=== PATIENT | male | born 1955 | race Caucasian/White ===

== ENCOUNTER 2018-11-30 21:55 | Observation (INO) | payer OTHER ==
[~2018-11-30] VITALS: Ht 177.8 cm; Wt 96.6 kg
--- OUTSIDE RECORDS SUMMARY | 2018-11-30 21:58 | XMS REPORT | Clinical Summary ---
Author Author [facility]ub [facility] Organization [facility] Address Unknown Phone Unavailable Care Team Providers Care Senior Mortgage Loan Processor Name Role Phone Asked, No Pcp PCP Unavailable Allergies No Known Allergies Medications End Date Status Medication Sig Dispensed Refills Start Date Active nabumetone (RELAFEN) 500 Take 500 mg 0 MG tablet by mouth 2 (two) times a day. Active pantoprazole (PROTONIX) Take 40 mg by 0 40 MG EC tablet mouth daily. Active atorvastatin (LIPITOR) 40 Take 40 mg by 0 MG tablet mouth 3 (three) times a week. Active FOLIC ACID ORAL Take 1 tablet 0 by mouth daily. Active Problems Problem Noted Date GERD with esophagitis 07/18/2017 Last Assessment & Plan: The patient has symptoms a burning pain in his throat and in his sinuses. These are somewhat atypical. The patient will be sent for an esophagram, high resolution esophageal manometry and a 48 hour problem pH study. The patient will also need a repeat EGD. I will also obtain the patient's last EGD report from Dr. Talbot. The patient will return to clinic after the above tests are complete to discuss the results. Family History Medical History Relation Name Comments Prostate cancer Brother No Known Problems Brother No Known Problems Brother No Known Problems Daughter No Known Problems Daughter Cancer Father No Known Problems Maternal Grandfather No Known Problems Maternal Grandmother Alzheimer's disease Mother Dementia Mother Heart disease Mother No Known Problems Paternal Grandfather No Known Problems Paternal Grandmother No Known Problems Sister No Known Problems Son Relation Name Status Comments Brother Alive Brother Alive Brother Alive Daughter Alive Daughter Alive Father Maternal Grandfather Maternal Grandmother Mother Paternal Grandfather Paternal Grandmother Sister Alive Son Alive Social History Date Tobacco Use Types Packs/Day Years Used Quit: 1980 Former Smoker Cigarettes 2 10 Smokeless Tobacco: Never Used Alcohol Use Drinks/Week oz/Week Comments Yes Sex Assigned at Date Recorded Not on file Industry Job Start Date Occupation Not on file Not on file Not on file Travel End Travel History Travel Start No recent travel history available. Last Filed Vital Signs Not on file Plan of Treatment Health Maintenance Due Date Last Done Comments COLONOSCOPY SCREENING 2003 SHINGLES VACCINES (#1) 2003 65+ PNEUMOCOCCAL VACCINE 2018 (1 of 2 - PCV13) INFLUENZA VACCINE 12/27/2018 Results Not on fileafter 11/29/2017 Insurance Type Payer Benefit Subscriber ID Effective Phone Address Plan / Dates Group HMO/PPO [facility] xxxxxxxxx 2017-P THCARE resent CHOICE/CHO ICE + Advance Directives Patient has advance care planning documents on file. For more information, sonya carrillo contact: Jakub Lomeli [address] [place] [address]
--- NOTE | 2018-11-30 22:13 | NUR ---
DR. CHAPMAN AT BEDSIDE FOR PT EVAL AT THIS TIME.
[2018-11-30] MEDS ORDERED: ASPIRIN 81 MG CHEW TAB PO ONE (22:15)
[2018-11-30] MEDS ORDERED: NITROGLYCERIN 2% OINT 1 GM PKT TOP ONE (22:15)
--- NOTE | 2018-11-30 22:22 | NUR ---
RADIOLOGY AT BEDSIDE FOR CXR AT THIS TIME.
[2018-11-30 22:46] LABS: BASOPHILS % 0.3 % (0.0-1.0); EOSINOPHILS # (AUTO) 0.3 (0.0-0.4); EOSINOPHILS % 4.3 % (0.0-6.0); HEMATOCRIT 45.6 % (38.2-49.6); HEMOGLOBIN 15.1 g/dL (14.0-18.0); LYMPHOCYTES # (AUTO) 1.6 (1.0-3.2); LYMPHOCYTES % 23.4 % (18.0-39.1); MEAN CORPUSCULAR HEMOGLOBIN 28.4 pg (28-32); MEAN CORPUSCULAR HGB CONC 33.1 g/dL (31-35); MEAN CORPUSCULAR VOLUME 85.7 fL (81-99); MONOCYTES # (AUTO) 0.7 (0.2-0.8); MONOCYTES % 10.4 % (4.4-11.3); NEUTROPHILS # (AUTO) 4.1 (2.1-6.9); NEUTROPHILS % 61.3 % (38.7-80.0); PLATELET COUNT 199 x10e3/uL (140-360); RED BLOOD COUNT 5.32 x10e6/uL (4.3-5.7)
--- NOTE | 2018-11-30 22:47 | Diagnostic Imaging Report ---
EXAMINATION: CHEST SINGLE (PORTABLE) COMPARISON: None INDICATION: tightness ^chest pain ^20181130 ^2220 ^Y DISCUSSION: Frontal view of the chest obtained at 2225 hours. HEART AND MEDIASTINUM: The cardiomediastinal silhouette is unremarkable. LINES: None. LUNGS: The lungs are well inflated and clear. No pneumonia or pulmonary edema. PLEURA: No pleural effusion or pneumothorax. Central eventration of the right hemidiaphragm. BONES AND SOFT TISSUES: No focal osseous lesion. The soft tissues are normal. IMPRESSION: No acute cardiopulmonary disease. Signed by: Dr. Franca Chaney MD on 11/30/2018 10:44 PM
[2018-11-30 23:04] LABS: ALANINE AMINOTRANSFERASE 60 IU/L (0-55); ALBUMIN 4.2 g/dL (3.5-5.0); ALBUMIN/GLOBULIN RATIO 1.7 (0.8-2.0); ALKALINE PHOSPHATASE 117 IU/L (40-150); BLOOD UREA NITROGEN 24 mg/dL (7-26); BUN/CREATININE RATIO 18 (6-25); CALCIUM 9.5 mg/dL (8.4-10.2); CARBON DIOXIDE 25 mmol/L (22-29); CHLORIDE 104 mmol/L (98-107); CREATINE KINASE 131 IU/L (30-200); CREATININE, SERUM 1.31 mg/dL (0.72-1.25); EST GLOMERULAR FILTRATION RATE 55 ML/MIN (60-); GLUCOSE 87 mg/dL (74-118); SODIUM 139 mmol/L (136-145)
--- NOTE | 2018-11-30 23:15 | NUR ---
REPORT GIVEN TO DESTINY GUERRA.
--- NOTE | 2018-11-30 23:16 | NUR ---
RECEIVED REPORT FROM DESTINY SERRA.
[2018-12-01] VITALS (9 sets, daily range): BP systolic 99–111; BP diastolic 60–72
--- OUTSIDE RECORDS SUMMARY | 2018-12-01 00:41 | XMS REPORT | Clinical Summary ---
Author Author [facility]ub [facility] Organization [facility] Address Unknown Phone Unavailable Care Team Providers Care Bricklayer Helper Name Role Phone Asked, No Pcp PCP [...] INFLUENZA VACCINE 12/27/2018 Results Not on fileafter 11/30/2017 Insurance Type Payer Benefit Subscriber ID Effective Phone Address Plan / Dates Group HMO/PPO [facility] xxxxxxxxx 2017-P THCARE resent CHOICE/CHO ICE + Guarantor Name Account Relation to Date of Phone Billing Address Type Patient Jonnathan Bedoya Personal/F Self 1955 [phone] [id number] [facility] [address] [place] [address] Advance Directives Patient has advance care planning documents on file. For more information, sonya carrillo contact: Jakub Lomeli [address] [place] [address]
--- OUTSIDE RECORDS SUMMARY | 2018-12-01 00:41 | XMS REPORT ---
Author Author [facility] Address Unknown Phone Unavailable Care Team Providers Care Piping Engineer Name Role Phone Poncho CHAPMAN Unavailable Unavailable Problems This patient has no known problems. Allergies, Adverse Reactions, Alerts This patient has no known allergies or adverse reactions. Medications This patient has no known medications. Results Test Description Test Time Test Comments Text Results Atomic Results Result Comments CHEST SINGLE (PORTABLE) 2018-11-30 22:43:00 [place] [address] Patient Name: ANNIE ROBERTS MR #: [id number] : 1955 Age/Sex: 63/M Req #: [id number] Adm Physician: Ordered by: NETO CHAPMAN MD Report #: [id number] Location: ER Room/Bed: Procedure: [id number] DX/CHEST SINGLE (PORTABLE) Exam Date: 11/30/18 Exam Time: 2219 REPORT STATUS: Signed EXAMINATION: CHEST SINGLE (PORTABLE) COMPARISON: None INDICATION: tightness chest pain 20181130 Y DISCUSSION: Frontal view of the chest obtained at 2225 hours. HEART AND MEDIASTINUM: The cardiomediastinal silhouette is unremarkable. LINES: None. LUNGS: The lungs are well inflated and clear. No pneumonia or pulmonary edema. PLEURA: No pleural effusion or pneumothorax. Central eventration of the right hemidiaphragm. BONES AND SOFT TISSUES: No focal osseous lesion. The soft tissues are normal. IMPRESSION: No acute cardiopulmonary disease. Signed by: Dr. Riky Chaney MD on 11/30/2018 10:44 PM Dictated By: RIKY CHANEY MD 43 Transcribed By: MAN on 11/30/182243 COPY TO: NETO CHAPMAN MD
[2018-12-01] MEDS ORDERED: SODIUM CHLORIDE FLUSH 10 ML SYR INJ PRN (00:45)
[2018-12-01] MEDS ORDERED: ONDANSETRON HCL INJ 2MG/ML 2ML 2 MG/ML VIAL IV PRN (00:45)
[2018-12-01] MEDS: FAMOTIDINE 20 MG/2 ML VIAL IV SCH ×3 (01:50→20:09)
--- NOTE | 2018-12-01 01:55 | NUR ---
RECEIVED PT BY WHEELCHAIR TO ROOM 112, PT IS AAOX3, RR EVEN AND NON-LABORED, ON ROOM AIR. NO S/SX OF DISTRESS NOTED. PT AMBULATORY TO HOSPITAL BED. ORIENTED PT TO HOSPITAL ROOM, CALL LIGHT, PHONE, BED CONTROLS AND LIGHTS. LEFT PT LAYING SEMI FOWLERS IN BED, BED IN LOW LOCKED POSITION, SIDE RAILS UPX2, CALL LIGHT AND PHONE WITHIN REACH.
[2018-12-01] MEDS ORDERED: MULTIVITAMINS1 EAC7 PO (02:26)
[2018-12-01] MEDS ORDERED: ATORVASTATIN CA20 MG PO (02:26)
[2018-12-01] MEDS ORDERED: PANTOPRAZOLE SO40 MG PO (02:26)
[2018-12-01] MEDS ORDERED: NABUMETONE500 MG PO (02:26)
[2018-12-01] MEDS ORDERED: NITROGLYCERIN 2% OINT 1 GM PKT TOP SCH (06:00)
--- NOTE | 2018-12-01 07:25 | NUR ---
PT UP IN BED ,DENIES CHEST PAIN.
[2018-12-01 07:42] LABS: CREATINE KINASE 109 IU/L (30-200)
[2018-12-01] MEDS: ASPIRIN 81 MG ENTERIC COATED PO SCH (09:00)
[2018-12-01] MEDS ORDERED: ZOLPIDEM TARTRATE 5 MG TAB PO PRN (14:30)
[2018-12-01] MEDS ORDERED: MAGNESIUM/ALUMINUM/SIMETHICONE 30 ML UDC PO PRN (14:30)
[2018-12-01] MEDS ORDERED: MAGNESIUM HYDROXIDE 30 ML UDC PO PRN (14:30)
[2018-12-01] MEDS ORDERED: ACETAMINOPHEN 325 MG TAB PO PRN (14:30)
--- NOTE | 2018-12-01 15:00 | NUR ---
DR MOULTON HERE
--- NOTE | 2018-12-01 15:47 | History and Physical ---
CHIEF COMPLAINT: Mr. Bedoya is a pleasant 63-year-old man, who tells me that he retired about three months ago. He presented to the emergency room with a complaint of substernal chest discomfort. HISTORY OF PRESENT ILLNESS: The patient tells me that yesterday after lunch and then again today after lunch that he had epigastric discomfort that radiated to his chest and neck. He is not sure where this comes from and never had the identical discomfort before. He has had previous discomforts that were evidently related to pleurisy and pericarditis in the past. PAST MEDICAL HISTORY: Relatively insignificant. He knows that he has a hiatal hernia. He has had previous surgeries for left shoulder and for carpal tunnel release. He reports he takes pantoprazole and Nexium at home, although these symptoms have improved since he retired. PERSONAL/SOCIAL HISTORY: He has not smoked in many years. Rarely has any alcohol. FAMILY HISTORY: Mother had coronary artery disease and brother had sleep apnea. PHYSICAL EXAMINATION: GENERAL: At this time shows a pleasant man about 5 feet 10 inches tall, weighing about 213 pounds. VITAL SIGNS: Blood pressure 107/68. HEAD, EYES, EARS, NOSE, and THROAT: Unremarkable. NECK: No jugular venous distention. THORAX: Heart sounds S1, S2 equal. No murmurs. Lungs are clear. ABDOMEN: Protuberant. Normal bowel sounds. EXTREMITIES: No cyanosis, clubbing, or edema. LABORATORY DATA: EKG is normal sinus rhythm. Troponins are normal x3. His AST and ALT are both slightly elevated, which he admits that his family doctor found the same thing earlier this year. Chest x-ray is unremarkable. ASSESSMENT: 1. Epigastric and chest discomfort postprandial, may have been due to liver and gallbladder abnormalities. 2. Mildly elevated liver functions. PLAN: We will check ultrasound of the abdomen with attention to liver and gallbladder, and we will monitor his general status. We will provide p.r.n. medications. MD SHIELA Rocha/GEOVANNI /[id number] cc: Colton Downs
--- NOTE | 2018-12-01 17:16 | NUR ---
DENIES CHHEST PAIN,AWAITING US ABDOMEN
--- NOTE | 2018-12-01 19:00 | NUR ---
Received report from day nurse. patient is resting comfortably in bed. bed is in lowest position and call londono is within reach. will continue to monitor patient's care.
--- NOTE | 2018-12-01 20:10 | Diagnostic Imaging Report ---
HISTORY: None TECHNIQUE: Selected static images from complete abdominal ultrasound provided for INTERPRETATION: COMPARISON: None. FINDINGS: Pancreas: Visualized portions are increased in echotexture without mass or ductal dilatation. Liver: Measures 13.4 cm in sagittal plane. The echotexture is normal. No mass in the visualized portions. Portal Vein: Measures 1.0 cm. Hepatopetal flow on spectral Doppler interrogation. Biliary Tree: Normal Gallbladder: No evidence of gallstone or gallbladder wall thickening. CBD: 0.2 cm. Right Kidney: Length is 10.4 cm. Echotexture is normal. A cyst in the interpolar region measures 11 x 13 x 16 mm. Left Kidney: Length is 12.1 cm. Echotexture is normal. Partially septated cyst in the interpolar region measures 6.4 x 8.1 x 6.6 cm. Spleen: 12.5 cm in length. No evidence for mass. Aorta: Poorly visualized due to bowel gas. IVC: Patent No free fluid IMPRESSION: Normal hepatic echotexture and size. No hepatic mass. Normal gallbladder and biliary tree. Bilateral renal cysts as described above. Signed by: Dr. Franca Chaney MD on 12/01/2018 8:07 PM
[2018-12-01 22:15] LABS: CREATINE KINASE 113 IU/L (30-200)
[2018-12-02 04:00] VITALS: BP 110/69
[2018-12-02 05:22] LABS: CHOL/HDL RATIO 3.7 (3.9-4.7)
--- NOTE | 2018-12-02 06:57 | NUR ---
report given to day nurse. patient is resting comfortably in bed. bed is in lowest position and call londono is within reach.
--- NOTE | 2018-12-02 07:30 | NUR ---
PT UP IN BED ,DENIES CHEST PAIN.TEL IN PLACE NSR
[2018-12-02 08:00] VITALS: BP 113/79
[2018-12-02] MEDS: FAMOTIDINE 20 MG/2 ML VIAL IV SCH (08:21)
[2018-12-02] MEDS: ASPIRIN 81 MG ENTERIC COATED PO SCH (08:21)
[2018-12-02 09:16] VITALS: BP 113/79
[2018-12-02 13:42] VITALS: BP 112/70
--- NOTE | 2018-12-02 14:01 | Discharge Summary ---
Mr. Bedoya is a pleasant 63-year-old man, known to us from previous evaluations. He was admitted in the stain applicator hours of the 6th with epigastric and chest discomfort. HOSPITAL COURSE: The patient was admitted with normal EKGs and three sets of normal cardiac enzymes. Echocardiogram revealed mild LVH and normal systolic function. As the patient has slightly elevated liver functions, he had ultrasound of the gallbladder, which showed normal gallbladder and normal liver texture. He remains comfortable and with known hiatal hernia, he is discharged home to continue his previous medications and to add antacids as necessary and proceed to outpatient gastroenterology consultation. DISCHARGE DIAGNOSES: 1. Epigastric and chest discomfort. 2. Mildly elevated liver functions. 3. Known hiatal hernia. MD SHIELA Rocha/GEOVANNI /[id number] cc: Colton Downs
--- NOTE | 2018-12-02 14:37 | NUR ---
PT DISCHARGED HOME IV DCD WITHOUT REDNESS OR SWELLING,NO C/O CHEST PAIN.TRANSPORTED TO [facility] VIA W/C
== END 2018-12-02 14:00 | disposition home or self-care (01) ==
LOC: ER 21:55 → ERHOLD 12-01 00:38 → MED/SURG 12-01 01:51
PROVIDERS: ADMIT Internal Medicine Cardiovascular Disease; ATTEND Internal Medicine Cardiovascular Disease
DX: R07.89 Other chest pain (principal); R10.13 Epigastric pain; R79.89 Other specified abnormal findings of blood chemistry; E78.5 Hyperlipidemia, unspecified; K21.9 Gastro-esophageal reflux disease without esophagitis; M19.90 Unspecified osteoarthritis, unspecified site; Z82.49 Family history of ischemic heart disease and other diseases of the circulatory system; K44.9 Diaphragmatic hernia without obstruction or gangrene; Z87.891 Personal history of nicotine dependence
CPT/HCPCS: 36415 ×3; 71045; 76700; 80053; 80061; 82550 ×2; 82553 ×2; 84484 ×2; 85025; 93005; 93306; 99284; G0378 ×2

== ENCOUNTER → 2020-01-21 | Day surgery (SDC) | payer OTHER ==
[2020-01-16 09:45] LABS: BASOPHILS % 0.3 % (0.0-1.0); EOSINOPHILS # (AUTO) 0.2 (0.0-0.4); EOSINOPHILS % 2.9 % (0.0-6.0); HEMATOCRIT 47.7 % (38.2-49.6); HEMOGLOBIN 15.6 g/dL (14.0-18.0); LYMPHOCYTES # (AUTO) 1.5 (1.0-3.2); LYMPHOCYTES % 22.9 % (18.0-39.1); MEAN CORPUSCULAR HEMOGLOBIN 28.3 pg (28-32); MEAN CORPUSCULAR HGB CONC 32.7 g/dL (31-35); MEAN CORPUSCULAR VOLUME 86.6 fL (81-99); MONOCYTES # (AUTO) 0.5 (0.2-0.8); MONOCYTES % 7.9 % (4.4-11.3); NEUTROPHILS # (AUTO) 4.3 (2.1-6.9); NEUTROPHILS % 65.5 % (38.7-80.0); PLATELET COUNT 219 x10e3/uL (140-360); RED BLOOD COUNT 5.51 x10e6/uL (4.3-5.7); RED CELL DISTRIBUTION WIDTH 12.6 % (11.7-14.4)
[~2020-01-21] MED LIST: ATORVASTATIN CA20 MG PO; BUPIVACAINE HCL 0.5% INJ 30 ML VIAL INJ ONE; COQ-10100 MG PO; FENTANYL CITRATE/PF 100MCG/2 ML INJ ONE; IOPAMIDOL 300MG/ML 50ML INFUS..BTL IV ONE; LIDOCAINE HCL 1% LOCAL INJ 20 ML VIAL ONE; LIDOCAINE HCL 2% LOCAL INJ 5 ML SDV VIAL INJ ONE; MIDAZOLAM HCL 2 MG/2 ML VIAL ONE; MULTI-VITAMIN1 EACH PO; MULTIVITAMINS1 EAC7 PO; NABUMETONE500 MG PO; PANTOPRAZOLE SO40 MG PO; PROPOFOL IV EMULSION 10 MG/ML 20 ML VIAL ONE; TRIAMCINOLONE ACET 40 MG/ML VIAL ONE; VITAMIN D325 MCG PO
[2020-01-21 07:55] VITALS: BP 118/66
--- NOTE | 2020-01-21 08:28 | Operative Report ---
DATE OF PROCEDURE: 01/21/2020 SURGEON: Josué Valladares MD PREOPERATIVE DIAGNOSIS: Osteoarthritis, right hip. POSTOPERATIVE DIAGNOSIS: Osteoarthritis, right hip. PROCEDURE: Right hip fluoroscopic-guided corticosteroid injection. INDICATIONS: The patient is a 65-year-old gentleman, who has signs and symptoms consistent with osteoarthritis of his right hip. His x-rays do not look too bad. He also has some back issues. We plan on a fluoroscopic-guided hip injection for diagnostic and therapeutic purposes. The risks and benefits were discussed. He stated he understood and wished to proceed. PROCEDURE IN DETAIL: The patient was brought to the operating room and placed under MAC anesthetic. A C-arm image intensifier was used to assist in placing a spinal needle into the right hip joint. A small amount of synovial fluid was aspirated. A small amount of dye was injected to confirm intra-articular position as well. A mixture of 40 mg of Depo-Medrol and 9 mL of 0.5% Marcaine were injected into the hip joint. It was clear that the injection was into the hip joint. The needle was retrieved and a Band-Aid was applied. He was transported to the recovery room in stable condition. Josué Valladares MD DR/GEOVANNI /[id number]
== END | disposition home or self-care (01) ==
LOC: OR 05:27
PROVIDERS: ATTEND Specialist
DX: M16.11 Unilateral primary osteoarthritis, right hip (principal); E78.5 Hyperlipidemia, unspecified; Z01.810 Encounter for preprocedural cardiovascular examination; Z01.812 Encounter for preprocedural laboratory examination; Z11.59 Encounter for screening for other viral diseases; Z87.891 Personal history of nicotine dependence
CPT/HCPCS: 20610; 77002; 36415; 85025; 93005; J2001; J2250; J2704; J3010; J3301; Q9967; U0002; 76000

== ENCOUNTER 2020-02-24 05:10 | Observation (INO) | payer OTHER ==
[~2020-02-24] VITALS: Ht 177.8 cm; Wt 96.6 kg
[~2020-02-24 05:10] MED LIST changes: -BUPIVACAINE HCL 0.5% INJ 30 ML VIAL INJ ONE; -FENTANYL CITRATE/PF 100MCG/2 ML INJ ONE; -IOPAMIDOL 300MG/ML 50ML INFUS..BTL IV ONE; -LIDOCAINE HCL 1% LOCAL INJ 20 ML VIAL ONE; -LIDOCAINE HCL 2% LOCAL INJ 5 ML SDV VIAL INJ ONE; -MIDAZOLAM HCL 2 MG/2 ML VIAL ONE; -PROPOFOL IV EMULSION 10 MG/ML 20 ML VIAL ONE; -TRIAMCINOLONE ACET 40 MG/ML VIAL ONE
[2020-02-24] MEDS ORDERED: DEXAMETHASONE SOD PHOS INJ 4 MG/ML VIAL ONE (06:03)
[2020-02-24] MEDS ORDERED: CELECOXIB 200 MG CAP ONE (06:03)
[2020-02-24] MEDS ORDERED: GABAPENTIN 300 MG CAP ONE (06:04)
[2020-02-24] MEDS ORDERED: CEFAZOLIN SOD 1 GM/NS 50ML 100 ML IV ONE (06:04)
[2020-02-24] MEDS ORDERED: VANCOMYCIN HCL 1,000 MG ONE (06:39)
[2020-02-24] MEDS ORDERED: TRANEXAMIC ACID 1,000 MG/10 ML ML ONE (06:39)
[2020-02-24] MEDS ORDERED: SODIUM CHLORIDE 0.9% 500ML 500 ML ONE (06:40)
[2020-02-24] MEDS ORDERED: BUPIVACAINE 7.5MG/ML /DEXTROSE 82.5MG/ML 2 ML AMP INJ ONE (07:09)
[2020-02-24] MEDS ORDERED: ROPIVACAINE 246.25 MG, EPINEPHRINE HCL 1:1000 1ML 0.5 MG, CLONIDINE HCL 0.08 MG, KETORO... INJ ONE ×5 (08:00)
[2020-02-24] MEDS ORDERED: DOCUSATE SODIUM 100 MG CAP PO PRN (08:30)
[2020-02-24] MEDS ORDERED: ZOLPIDEM TARTRATE 5 MG TAB PO PRN (08:30)
[2020-02-24] MEDS ORDERED: ONDANSETRON HCL INJ 2MG/ML 2ML 2 MG/ML VIAL IV PRN (08:30)
[2020-02-24] MEDS ORDERED: ACETAMINOPHEN 650 MG SUPP PR PRN (08:30)
[2020-02-24] MEDS ORDERED: HYDROCODONE/APAP 5MG-325MG TAB PO PRN (08:30)
[2020-02-24] MEDS ORDERED: DIPHENHYDRAMINE HCL INJ 50 MG/ML VIAL IV PRN (08:30)
[2020-02-24] MEDS ORDERED: KETOROLAC TROMETHAMINE 30 MG/ML VIAL IV PRN (08:30)
[2020-02-24 11:30] VITALS: BP 116/73
[2020-02-24] MEDS: SODIUM CHLORIDE 0.9% 1000ML 1,000 ML IV SCH ×2 (11:30→21:30)
[2020-02-24] MEDS ORDERED: PROPOFOL IV EMULSION 10 MG/ML 20 ML VIAL ONE (12:55)
[2020-02-24] MEDS ORDERED: GLYCOPYRROLATE INJ 0.2 MG/ML VIAL ONE (12:55)
[2020-02-24] MEDS ORDERED: LIDOCAINE HCL 2% LOCAL INJ 5 ML SDV VIAL INJ ONE (12:55)
[2020-02-24] MEDS ORDERED: MIDAZOLAM HCL 2 MG/2 ML VIAL ONE (13:03)
[2020-02-24] MEDS ORDERED: FENTANYL CITRATE/PF 100MCG/2 ML INJ ONE (13:03)
[2020-02-24] MEDS: CEFAZOLIN SOD 1 GM/NS 50ML 50 ML IV SCH ×2 (14:40→23:00)
[2020-02-24 14:58] VITALS: BP 121/78
[2020-02-24] MEDS: ASPIRIN 325 MG TAB PO SCH (17:09)
[2020-02-24] MEDS: CELECOXIB 200 MG CAP PO SCH (17:09)
[2020-02-24 20:00] VITALS: BP 117/75
[2020-02-24 20:35] VITALS: BP 117/75
[2020-02-24] MEDS ORDERED: ATORVASTATIN 40 MG TAB PO SCH (21:00)
[2020-02-25] VITALS: BP 118/71
[2020-02-25] MEDS: HYDROCODONE/APAP 7.5MG-325MG 1 EA TAB PO PRN ×2 (00:04→06:38)
[2020-02-25 04:00] VITALS: BP 117/69
[2020-02-25 06:03] LABS: BASOPHILS % 0.2 % (0.0-1.0); EOSINOPHILS % 0.2 % (0.0-6.0); HEMATOCRIT 39.4 % (38.2-49.6); HEMOGLOBIN 13.2 g/dL (14.0-18.0); LYMPHOCYTES # (AUTO) 1.1 (1.0-3.2); LYMPHOCYTES % 8.6 % (18.0-39.1); MEAN CORPUSCULAR HGB CONC 33.5 g/dL (31-35); MEAN CORPUSCULAR VOLUME 89.5 fL (81-99); MONOCYTES # (AUTO) 1.1 (0.2-0.8); MONOCYTES % 8.9 % (4.4-11.3); NEUTROPHILS # (AUTO) 10.5 (2.1-6.9); NEUTROPHILS % 81.5 % (38.7-80.0); PLATELET COUNT 168 x10e3/uL (140-360); RED CELL DISTRIBUTION WIDTH 12.8 % (11.7-14.4)
[2020-02-25 06:39] LABS: ALANINE AMINOTRANSFERASE 20 IU/L (0-55); ALBUMIN 3.9 g/dL (3.5-5.0); ALBUMIN/GLOBULIN RATIO 1.9 (0.8-2.0); ALKALINE PHOSPHATASE 92 IU/L (40-150); BLOOD UREA NITROGEN 16 mg/dL (7-26); BUN/CREATININE RATIO 15 (6-25); CALCIUM 8.9 mg/dL (8.4-10.2); CARBON DIOXIDE 25 mmol/L (22-29); CHLORIDE 105 mmol/L (98-107); EST GLOMERULAR FILTRATION RATE > 60 ML/MIN (60-); GLUCOSE 114 mg/dL (74-118); SODIUM 138 mmol/L (136-145)
[2020-02-25] MEDS: CEFAZOLIN SOD 1 GM/NS 50ML 50 ML IV SCH (06:40)
[2020-02-25] MEDS: SODIUM CHLORIDE 0.9% 1000ML 1,000 ML IV SCH (07:30)
[2020-02-25] MEDS ORDERED: ACETAMINOPHEN 1000 MG/100 ML IV PRN (08:30)
[2020-02-25 08:50] VITALS: BP 134/72
[2020-02-25] MEDS ORDERED: PANTOPRAZOLE SOD 40 MG TABEC PO SCH (09:00)
[2020-02-25] MEDS ORDERED: MULTIVITAMINS/MINERALS TAB PO SCH (09:00)
[2020-02-25] MEDS: ASPIRIN 325 MG TAB PO SCH (09:13)
[2020-02-25] MEDS: CELECOXIB 200 MG CAP PO SCH (09:13)
[2020-02-25 09:32] VITALS: BP 134/72
[2020-02-25 12:14] VITALS: BP 115/66
== END 2020-02-25 14:29 | disposition home health service (06) ==
LOC: OR 05:10 → PACU V 08:17 → MED/SURG 11:00
PROVIDERS: ADMIT Specialist; ATTEND Specialist
DX: M16.11 Unilateral primary osteoarthritis, right hip (principal); E78.5 Hyperlipidemia, unspecified; K21.9 Gastro-esophageal reflux disease without esophagitis; E66.01 Morbid (severe) obesity due to excess calories; Z68.32 Body mass index [BMI] 32.0-32.9, adult; Z11.59 Encounter for screening for other viral diseases; Z01.818 Encounter for other preprocedural examination
CPT/HCPCS: 27130; 36415; 72170; 80053; 85025; 86850; 86900; 86920; 97110 ×2; 97116 ×2; 97161; C1713 ×2; C1734; C1776 ×2; G0378 ×2; J0171; J0690 ×2; J1100; J1885; J2001; J2250; J2405; J2704; J2795; J3010; J3370; J7040; S0164; U0002

== ENCOUNTER 2022-09-08 10:08 | Emergency (ER) | payer OTHER, MEDICARE ==
[~2022-09-08] VITALS: Ht 177.8 cm; Wt 96.6 kg
[2022-09-08] MEDS ORDERED: NAPROSYN500 MG PO (11:42)
[2022-09-08 11:57] VITALS: BP 143/91
== END 2022-09-08 12:05 | disposition home or self-care (01) ==
LOC: ER 10:14
DX: M25.562 Pain in left knee (principal); M25.462 Effusion, left knee; E78.5 Hyperlipidemia, unspecified; K21.9 Gastro-esophageal reflux disease without esophagitis
CPT/HCPCS: 99284

== ENCOUNTER 2023-07-03 05:54 | Emergency (ER) | payer OTHER, MEDICARE ==
[~2023-07-03] VITALS: Ht 177.8 cm; Wt 96.6 kg
[~2023-07-03 05:54] MED LIST changes: +NAPROSYN500 MG PO
[2023-07-03 06:20] LABS: BASOPHILS % 0.3 % (0.0-1.0); EOSINOPHILS % 0.3 % (0.0-6.0); HEMATOCRIT 48.4 % (38.2-49.6); HEMOGLOBIN 15.2 g/dL (14.0-18.0); LYMPHOCYTES % 7.6 % (18.0-39.1); MEAN CORPUSCULAR HEMOGLOBIN 27.9 pg (28-32); MEAN CORPUSCULAR HGB CONC 31.4 g/dL (31-35); MEAN CORPUSCULAR VOLUME 88.8 fL (81-99); MONOCYTES # (AUTO) 0.4 (0.2-0.8); MONOCYTES % 2.9 % (4.4-11.3); NEUTROPHILS # (AUTO) 11.8 (2.1-6.9); NEUTROPHILS % 88.4 % (38.7-80.0); PLATELET COUNT 220 x10e3/uL (140-360); RED BLOOD COUNT 5.45 x10e6/uL (4.3-5.7); RED CELL DISTRIBUTION WIDTH 12.4 % (11.7-14.4)
[2023-07-03 06:29] LABS: INR 1.18; PARTIAL THROMBOPLASTIN TIME 28.2 seconds (23.8-35.5); PROTHROMBIN TIME 15.3 seconds (11.9-14.5)
[2023-07-03] MEDS: SODIUM CHLORIDE 0.9% 1000ML 1,000 ML IV STA (06:34)
[2023-07-03] MEDS: ONDANSETRON HCL INJ 2MG/ML 2ML 2 MG/ML VIAL IV STA (06:35)
[2023-07-03] MEDS: KETOROLAC TROMETHAMINE 30 MG/ML VIAL IV STA (06:35)
[2023-07-03 06:38] LABS: ALBUMIN 4.3 g/dL (3.5-5.0); ALBUMIN/GLOBULIN RATIO 1.5 (0.8-2.0); ANION GAP 14.9 mmol/L (8-16); BILIRUBIN,TOTAL 0.6 mg/dL (0.2-1.2); CALCIUM 9.2 mg/dL (8.4-10.2); CREATININE, SERUM 1.53 mg/dL (0.72-1.25); MAGNESIUM 1.9 MG/DL (1.3-2.1); POTASSIUM 3.9 mmol/L (3.5-5.1); TOTAL PROTEIN 7.1 g/dL (6.5-8.1)
[2023-07-03 06:46] LABS: BILIRUBIN,URINE NEGATIVE (NEGATIVE); CLARITY,URINE CLOUDY (CLEAR); COLOR,URINE YELLOW (YELLOW); GLUCOSE, URINE 1+ (NEGATIVE); KETONES,URINE NEGATIVE (NEGATIVE); LEUKOCYTE ESTERASE ,URINE NEGATIVE (NEGATIVE); NITRITE,URINE NEGATIVE (NEGATIVE); PH,URINE 6 (5 - 7); PROTEIN,URINE DIPSTICK TRACE (NEGATIVE); URINE UROBILINOGEN 0.2 mg/dL (0.2 - 1)
[2023-07-03 07:18] LABS: BACTERIA,URINE MODERATE /HPF; EPITHELIAL CELLS,URINE RARE /LPF; RBC,URINE >50 /HPF (0-5)
[2023-07-03 09:35] VITALS: O2SAT 100
[2023-07-03] MEDS ORDERED: ULTRAM 50MG50 MG PO (09:40)
[2023-07-03] MEDS ORDERED: ONDANSETRON ODT4 MG PO (09:40)
[2023-07-03] MEDS ORDERED: CEFDINIR300 MG PO (09:40)
== END 2023-07-03 10:19 | disposition home or self-care (01) ==
LOC: ER 06:03
DX: R10.30 Lower abdominal pain, unspecified (principal); N39.0 Urinary tract infection, site not specified; N13.2 Hydronephrosis with renal and ureteral calculous obstruction; K57.90 Diverticulosis of intestine, part unspecified, without perforation or abscess without bleeding; E78.5 Hyperlipidemia, unspecified; K21.9 Gastro-esophageal reflux disease without esophagitis; K44.9 Diaphragmatic hernia without obstruction or gangrene; K76.0 Fatty (change of) liver, not elsewhere classified
CPT/HCPCS: 36415; 74176; 80053; 81001; 83690; 83735; 85025; 85610; 85730; 99284; J0696; J1885; J2405; J7030